=== PATIENT | female | born 1955 | race Caucasian/White ===

== ENCOUNTER 2017-11-23 15:43 | Outpatient (CLI) | payer BC, OTHER ==
[~2017-11-23 15:43] MED LIST: Gadobenate Dimeglumine 529 MG/1 ML (20ML VIAL) ONE
--- NOTE | 2017-11-23 17:53 | MRI ---
MRI OF BRAIN WITH AND WITHOUT CONTRAST: Date: 11/23/17 INDICATION: History of multiple abdominal surgeries with pseudomyxoma peritonei and headaches with tingling and n umbness in both hands. TECHNIQUE: Multiplanar, multisequence MR images were obtained of the brain with and without contrast utilizing 1 2 mL of MultiHance. No comparisons are available. FINDINGS: No area of restricted diffusion is seen to suggest presence of acute ischemia. There are areas of sca ttered subcortical and periventricular white matter T2 hyperintensities, likely related to mild chron ic small vessel ischemic change. Septum pellucidum and third ventricle are midline. There are appropr iate flow-voids seen within the major intracranial vessels. No definite area of abnormal enhancement is demonstrated. IMPRESSION: 1. No acute intracranial abnormality. 2. Mild paranasal sinus disease. POS: [facility]
== END 2017-11-23 15:44 | disposition home or self-care (01) ==
LOC: MRI 15:43
PROVIDERS: ATTEND Family Medicine
DX: C78.6 Secondary malignant neoplasm of retroperitoneum and peritoneum (principal); M54.2 Cervicalgia; G62.9 Polyneuropathy, unspecified; J32.9 Chronic sinusitis, unspecified
CPT/HCPCS: 70553; A9579

== ENCOUNTER 2018-05-04 09:12 | Outpatient (CLI) | payer BC, OTHER | END 2018-05-04 09:13 | disposition home or self-care (01) | LOC: BICMAMMO 09:12 | PROVIDERS: ATTEND Obstetrics & Gynecology | DX: Z12.31 Encounter for screening mammogram for malignant neoplasm of breast (principal) | CPT/HCPCS: 77063; 77067 ==

== ENCOUNTER 2019-05-05 11:01 | Outpatient (CLI) | payer MEDICARE, BC ==
--- NOTE | 2019-05-05 12:32 | BD ---
Exam: DEXA Bone Density History: 64-year-old post-menopausal female for screening. Comparison: None. FINDINGS: Lumbar Spine: BMD (g/cm2) L1 0.843 T-Score: -1.3 L2 0.886 T-Score: -1.3 L3 0.880 T-Score: -1.9 L4 0.895 T-Score: -1.5 L1-L4 0.876 T-Score: -1.6 Femoral Neck: 0.652 T-Score: -1.8 Total Femur: 0.845 T-Score: -0.8 Impression: Osteopenia. This patient has a 10-year WHO fracture risk of a major osteoporotic fracture of 9.4% and a hip fracture of 1.2%. POS: [facility]
== END 2019-05-05 11:02 | disposition home or self-care (01) ==
LOC: BICMAMMO 11:01
PROVIDERS: ATTEND Obstetrics & Gynecology
DX: Z13.820 Encounter for screening for osteoporosis (principal); M85.89 Other specified disorders of bone density and structure, multiple sites
CPT/HCPCS: 77080

== ENCOUNTER 2021-01-14 12:59 | Outpatient (CLI) | payer MEDICARE, BC ==
[2021-01-14] MEDS ORDERED: Iopamidol 370 76% 100 ML VIAL ONE (14:44)
[2021-01-14] MEDS ORDERED: Iopamidol 370 76% 50 ML VIAL FS ONE (14:44)
[2021-01-14 15:05] LABS: Estimated GFR-MDRD - POC Greater than 90
== END 2021-01-14 13:00 | disposition home or self-care (01) ==
LOC: CT 12:59
PROVIDERS: ATTEND Physician Assistant
DX: K62.5 Hemorrhage of anus and rectum (principal); R10.30 Lower abdominal pain, unspecified; K59.00 Constipation, unspecified; K63.89 Other specified diseases of intestine; Z85.09 Personal history of malignant neoplasm of other digestive organs; Z90.49 Acquired absence of other specified parts of digestive tract; Z90.81 Acquired absence of spleen
CPT/HCPCS: 36415; 74177; 80053; 81015; 82274; 85025; 87086; Q9967

== ENCOUNTER 2021-05-10 10:45 | Outpatient (CLI) | payer MEDICARE, BC | END 2021-05-10 10:46 | disposition home or self-care (01) | LOC: BICMAMMO 10:45 | PROVIDERS: ATTEND Family Medicine | DX: Z13.820 Encounter for screening for osteoporosis (principal); Z78.0 Asymptomatic menopausal state; M85.89 Other specified disorders of bone density and structure, multiple sites | CPT/HCPCS: 77080 ==

== ENCOUNTER 2022-03-28 12:14 | Outpatient (CLI) | payer MEDICARE, BC ==
[~2022-03-28 12:14] MED LIST changes: +GASTROGRAFIN 30 ML BOT ONE; -Gadobenate Dimeglumine 529 MG/1 ML (20ML VIAL) ONE; +Iopamidol 370 76% 100 ML VIAL ONE
== END 2022-03-28 12:15 | disposition home or self-care (01) ==
LOC: CT 12:14
PROVIDERS: ATTEND Family Medicine
DX: R10.32 Left lower quadrant pain (principal)
CPT/HCPCS: 74177; Q9963; Q9967

== ENCOUNTER 2023-06-19 08:28 | Outpatient (CLI) | payer MEDICARE, BC | END 2023-06-19 08:29 | disposition home or self-care (01) | LOC: BICMAMMO 08:28 | PROVIDERS: ATTEND Family Medicine | DX: Z13.820 Encounter for screening for osteoporosis (principal); N95.1 Menopausal and female climacteric states; M85.89 Other specified disorders of bone density and structure, multiple sites | CPT/HCPCS: 77080 ==

== ENCOUNTER 2024-03-29 09:24 | Outpatient (CLI) | payer MEDICARE, BC | END 2024-03-29 09:25 | disposition home or self-care (01) | LOC: SCSMRI 09:24 | PROVIDERS: ATTEND Family Medicine | DX: M47.816 Spondylosis without myelopathy or radiculopathy, lumbar region (principal); S32.049A Unspecified fracture of fourth lumbar vertebra, initial encounter for closed fracture | CPT/HCPCS: 72148 ==